=== PATIENT | female | born 1990 | race Caucasian/White ===

== ENCOUNTER 2022-03-16 09:01 | Inpatient (IN) | payer MEDICAID ==
[~2022-03-16] VITALS: Ht 154.9 cm; Wt 90.7 kg
[2022-03-16 09:12] VITALS: BP 165/104
[2022-03-16] MEDS ORDERED: LIDOCAINE MPF 1% 10 MG/ML VIAL INJ ONE (09:15)
[2022-03-16] MEDS ORDERED: VANCOMYCIN 1,000 MG in DEXTROSE 5% 250 ML IV ONE (09:25)
[2022-03-16] MEDS ORDERED: NACL 0.9% 1,000 ML IV ONE (09:45)
--- NOTE | 2022-03-16 09:51 | NUR ---
PT C/O ABSCESS TO LEFT UNDER ARM X5 DAYS CURRENTLY ON KELFEX WITHOUT RELIEF. NOTED PURULENT DRAINAGE AND REDNESS EXTENDING TO LEFT BREAST.
[2022-03-16] MEDS ORDERED: VANCOMYCIN 1,000 MG VIAL ONE (09:53)
[2022-03-16 10:18] LABS: BASOPHILS # (AUTO) 0.1 K/uL (0.00-0.22); EOSINOPHILS # (AUTO) 0.1 K/uL (0-0.4)
[2022-03-16 10:22] LABS: BASOPHILS % (AUTO) 0.7 % (0.0-2.0); EOSINOPHILS % (AUTO) 0.6 % (0.0-4.0); HEMATOCRIT 24.5 % (36-48); LYMPHOCYTES # (AUTO) 3.5 K/uL (2.5-16.5); LYMPHOCYTES % (AUTO) 22.3 % (20.5-51.1); MEAN CORPUSCULAR HEMOGLOBIN 14 pg (27-31); MEAN CORPUSCULAR HGB CONC 27 g/dL (33-37); MEAN CORPUSCULAR VOLUME 51.4 fL (80-94); MONOCYTES # (AUTO) 0.5 K/uL (0.8-1.0); MONOCYTES % (AUTO) 3.4 % (1.7-9.3); NEUTROPHILS # (AUTO) 11.4 K/uL (1.8-7.7); PLATELET COUNT (AUTO) 670 K/uL (140-450); RED BLOOD CELL COUNT(AUTO) 4.76 MIL/uL (4.20-5.40); RED CELL DISTRIBUTION WIDTH 20.8 % (11.6-13.7); WHITE BLOOD COUNT (AUTO) 15.5 K/uL (4.8-10.8)
[2022-03-16 10:36] LABS: ALBUMIN 2.3 g/dL (3.4-5.0); ANION GAP 12.4 (8-16); CREATININE 0.6 mg/dL (0.6-1.3); POTASSIUM 4.4 mmol/L (3.5-5.1); TOTAL BILIRUBIN 0.2 mg/dL (0.0-1.0)
[2022-03-16 10:38] LABS: HEMOGLOBIN 6.7 g/dL (12.0-16.0)
--- NOTE | 2022-03-16 10:47 | NUR ---
PT SWABBED FOR COVID SENT TO LAB
[2022-03-16 11:18] LABS: PROTHROMBIN TIME 9.4 secs (10.8-13.4)
[2022-03-16] MEDS ORDERED: DOCUSATE SODIUM 100 MG GELCAP PO PRN (13:10)
[2022-03-16] MEDS ORDERED: MAG SULF 2000 MG/WATER PREMIX 50 ML IV PRN (13:10)
[2022-03-16] MEDS: NACL 0.9% 1,000 ML IV SCH (13:10)
[2022-03-16] MEDS ORDERED: LORazepam 2 MG/ML VIAL IM/IVP PRN (13:10)
[2022-03-16] MEDS ORDERED: ZOLPIDEM 5 MG TAB PO PRN (13:10)
[2022-03-16] MEDS ORDERED: POTASSIUM CHLORIDE 10 MEQ TABER PO PRN (13:10)
[2022-03-16] MEDS ORDERED: ALBUTEROL HFA MDI 90 MCG/ACTUATION 8 GM INH PRN (13:15)
[2022-03-16 13:51] LABS: THYROID STIMULATING HORMONE 0.64 uIU/mL (0.34-3.74)
[2022-03-16] MEDS ORDERED: VANCOMYCIN PER PHARMACY MC PRN (16:15)
[2022-03-16 20:00] VITALS: BP 128/95
[2022-03-16] MEDS: ZINC SULF 220 MG CAP PO SCH (20:54)
[2022-03-16] MEDS ORDERED: PIPERACILLIN/TAZOBACTAM 3.375 GM VIAL IV ONE (23:40)
[2022-03-17] VITALS: BP 142/85
--- NOTE | 2022-03-17 00:10 | NUR ---
PT ON STABLE CONDITION, ADVERSE REACTION ONE HOUR AFTER BLOOD TRANSFUSION DONE. NO COMPLAINT OF PAIN OR DISCOMFORT.
--- NOTE | 2022-03-17 04:00 | NUR ---
PT ASLEEP, NO COMPLAINT OF PAIN OR DISCOMFORT. SAFETY MEASURES IN PLACE, CALL LIGHT WITHIN REACH.
[2022-03-17] MEDS ORDERED: PIPERACILLIN/TAZOBACTAM 3.375 GM VIAL IV ONE (05:14)
--- NOTE | 2022-03-17 05:30 | NUR ---
PT LEFT AXILLA SWOLLEN AND WITH DRAINAGE.
[2022-03-17] MEDS: NACL 0.9% 1,000 ML IV SCH ×2 (05:50→23:20)
[2022-03-17] MEDS: PIPERACILLIN/TAZOBACTAM 3.375 GM in DEXTROSE 5% 50 ML IV SCH ×6 (06:00→17:34)
[2022-03-17] MEDS: HYDROcodone/APAP 5/325 MG 1 TAB TAB PO PRN (06:21)
--- NOTE | 2022-03-17 06:21 | NUR ---
PT COMPLAINT OF HAVING PAIN ON LEFT AXILLA OF MODERATE PAIN 5/10. PRN PAIN MEDICATION NORCO ADMINISTERED ORDERED.
--- NOTE | 2022-03-17 06:30 | NUR ---
URINE SPECIMEN FOR ANALYSIS AND DRUG SCREEN TAKEN & UNDER LEFT AXILLA SECRETION FOR CULTURE ALSO OBTAIN FOR LABS.
[2022-03-17 06:46] LABS: BASOPHILS # (AUTO) 0.1 K/uL (0.00-0.22); BASOPHILS % (AUTO) 0.8 % (0.0-2.0); EOSINOPHILS # (AUTO) 0.2 K/uL (0-0.4); EOSINOPHILS % (AUTO) 1.3 % (0.0-4.0); HEMATOCRIT 26.5 % (36-48); HEMOGLOBIN 8.1 g/dL (12.0-16.0); LYMPHOCYTES # (AUTO) 2.9 K/uL (2.5-16.5); LYMPHOCYTES % (AUTO) 23.8 % (20.5-51.1); MEAN CORPUSCULAR HEMOGLOBIN 17 pg (27-31); MEAN CORPUSCULAR HGB CONC 31 g/dL (33-37); MEAN CORPUSCULAR VOLUME 54.8 fL (80-94); MONOCYTES # (AUTO) 0.5 K/uL (0.8-1.0); MONOCYTES % (AUTO) 4.4 % (1.7-9.3); NEUTROPHILS # (AUTO) 8.6 K/uL (1.8-7.7); NEUTROPHILS % (AUTO) 69.7 % (42.2-75.2); PLATELET COUNT (AUTO) 637 K/uL (140-450); RED BLOOD CELL COUNT(AUTO) 4.85 MIL/uL (4.20-5.40); RED CELL DISTRIBUTION WIDTH 22.8 % (11.6-13.7); WHITE BLOOD COUNT (AUTO) 12.3 K/uL (4.8-10.8)
[2022-03-17 07:00] LABS: MAGNESIUM 1.7 mg/dL (1.8-2.4); PHOSPHORUS 4.9 mg/dL (2.5-4.9)
--- NOTE | 2022-03-17 07:10 | NUR ---
RECEIVED REPORT FROM NETWORK PLANNER NURSE. PT IS A&OX4, ON ROOM AIR, AND NPO WITH MEDS. PT IS AMBULATORY, BUT NEEDS ASSISTANCE GETTING UP ON BED. SKIN IS INTACT, BUT WITH OPEN NODULES AND DRAINAGE ON LEFT AXILLA. IV SITE ON LEFT FA, WITH 20G AND INFUSING WITH NSS AT 60ML/HR. DISCUSSED PLAN OF CARE.
[2022-03-17 07:17] LABS: ANION GAP 14.8 (8-16); CARBON DIOXIDE 23.7 mmol/L (21-32); CREATININE 0.7 mg/dL (0.6-1.3); POTASSIUM 3.5 mmol/L (3.5-5.1)
[2022-03-17 07:19] LABS: CHOL/HDL RATIO 6.6 (1-4.5)
--- NOTE | 2022-03-17 07:20 | NUR ---
PATIENT ON STABLE CONDITION. ENDORSED TO DAY SHIFT NURSE FOR CONTINUITY OF CARE.
[2022-03-17 08:00] VITALS: BP 133/84
[2022-03-17 08:06] LABS: T4 (THYROXINE) 10.9 ug/dL (4.5-12.0)
--- NOTE | 2022-03-17 08:42 | NUR ---
PATIENT HAS BEEN SCREENED AND CATEGORIZED LOW NUTRITION RISK. PATIENT WILL BE SEEN WITHIN 7 DAYS OF ADMISSION. 03/17/22-03/23/[address]
--- NOTE | 2022-03-17 09:00 | NUR ---
WOUND CARE PROVIDED, DRESSING APPLIED AREA, CLEANED. NEW GOWN PROVIDED
[2022-03-17 09:14] LABS: BILIRUBIN,URINE NEGATIVE (NEGATIVE); BLOOD, URINE NEGATIVE (NEGATIVE); COLOR,URINE YELLOW (YELLOW); LEUKOCYTE ESTERASE ,URINE NEGATIVE (NEGATIVE); NITRITE, URINE NEGATIVE (NEGATIVE); UGLUCOSE NEGATIVE (NEGATIVE)
[2022-03-17] MEDS: ZINC SULF 220 MG CAP PO SCH ×2 (09:18→21:40)
[2022-03-17] MEDS: AZITHROMYCIN 250 MG TAB PO SCH (09:18)
[2022-03-17 09:19] LABS: APPEARANCE,URINE HAZY (CLEAR)
[2022-03-17] MEDS: ASCORBIC ACID 500 MG TAB PO SCH (09:19)
[2022-03-17 09:36] LABS: BARBITURATE, URINE NEGATIVE ng/ml (NEG <=200); BENZODIAZEPINE, URINE NEGATIVE ng/mL (NEG <=200); CANNABINOID, URINE NEGATIVE ng/mL (NEG <=50); COCAINE, URINE NEGATIVE ng/mL (NEG <=300); OPIATE, URINE NEGATIVE ng/mL (NEG <=2000); PHENCYCLIDINE SCREEN,URINE NEGATIVE ng/mL (NEG <=25)
[2022-03-17] MEDS: VITAMIN D 400 IU TAB PO SCH (10:50)
--- NOTE | 2022-03-17 11:00 | NUR ---
PT NOT ON ISOLATION, PT IS COVID NEGATIVE.
[2022-03-17 12:00] VITALS: BP 141/81
--- NOTE | 2022-03-17 12:00 | NUR ---
KRYSTLE MORRIS, UNABLE TO START ZOSYN ADMINISTRATION. SPOKE TO PHARMACY, NOTIFIED THEM OF TIME CHANGE DUE TO OTHER IV INFUSIONS. WILL ADMINISTER NEXT ZOSYN DOSE AT 1700 PER PHARMACY
[2022-03-17] MEDS: VANCOMYCIN HCL 1.25 GM in DEXTROSE 5% 250 ML IV SCH ×2 (12:56→21:41)
--- NOTE | 2022-03-17 14:49 | NUR ---
DRESSING CAME OFF, NEW DRESSING APPLIED AND SECURED. PT TOLERATED WELL
--- NOTE | 2022-03-17 16:32 | NUR ---
PT LYING ON HER BED, AWAKE. NOT IN DISTRESS AT THIS TIMKE. WILL CONTINUE TO MONITOR.
--- NOTE | 2022-03-17 17:00 | NUR ---
ENDORSED PT TO PAYAL SALAS FOR CONTINUITY OF CARE
--- NOTE | 2022-03-17 19:17 | NUR ---
ENDORSE PT TO PM SHIFT NURSE W/ STABLE CONDITION PIV LFA PATENT, IV INFUSING
--- NOTE | 2022-03-17 19:18 | NUR ---
RECEIVED BEDSIDE REPORT FROM DAY SHIFT NURSE FOR CONTINUITY OF PT CARE.
--- NOTE | 2022-03-17 21:45 | NUR ---
CURRENTLY PT IS ON NPO EXCEPT MEDS. PT IS ASKING WHEN SHE CAN HAVE A MEAL. CONTACT DR. PARKER, NO NEW DIET ORDER AT THIS TIME. SPOKE TO PT, PT UNDERSTOOD.
[2022-03-18] VITALS: BP 146/90
[2022-03-18] MEDS: PIPERACILLIN/TAZOBACTAM 3.375 GM in DEXTROSE 5% 50 ML IV SCH ×5 (00:58→23:23)
--- NOTE | 2022-03-18 01:15 | NUR ---
PT ASLEEP AND ON STABLE CONDITION. IVF IS RUNNING AT 60ML/HR, PATENTCY. NO SOB OR DISTRESS.
--- NOTE | 2022-03-18 03:00 | NUR ---
PT STABLE, IVF IS RUNNING AT 60 ML WITH WELL TOLERATED. PT STATED, SHE HAS MINIMAL AND TOLERABLE PAIN. IVF PATENT. NO SOB OR DISTRESS.
--- NOTE | 2022-03-18 05:30 | NUR ---
PT AMBULATE INDEPENDENTLY TO RESTROOM. WOUND WITH DRAINAGE NOTED. CLEANSED WOUND AND CHANGE DRESSING. PT TOLERATED WELL. IV MEDS ADMINISTERED ORDERED.
[2022-03-18 07:22] LABS: HEMOGLOBIN 7.8 g/dL (12.0-16.0); MEAN CORPUSCULAR HEMOGLOBIN 17 pg (27-31); MEAN CORPUSCULAR HGB CONC 30 g/dL (33-37); MEAN CORPUSCULAR VOLUME 55.2 fL (80-94); PLATELET COUNT (AUTO) 671 K/uL (140-450); RED BLOOD CELL COUNT(AUTO) 4.72 MIL/uL (4.20-5.40); RED CELL DISTRIBUTION WIDTH 23.9 % (11.6-13.7); WHITE BLOOD COUNT (AUTO) 12.7 K/uL (4.8-10.8)
[2022-03-18 07:40] LABS: ANION GAP 12.4 (8-16); CARBON DIOXIDE 25.4 mmol/L (21-32); CREATININE 0.6 mg/dL (0.6-1.3); POTASSIUM 3.8 mmol/L (3.5-5.1)
[2022-03-18 07:42] LABS: MAGNESIUM 2.2 mg/dL (1.8-2.4); PHOSPHORUS 4.5 mg/dL (2.5-4.9)
--- NOTE | 2022-03-18 07:57 | NUR ---
RECEIVED ENDORSEMENT FROM PM SHIFT NURSE THAT PATIENT STABLE W/ PIV @LFA 20G PATENT, IV INFUSING. LAB REPORT THAT PATIENT IS MRSA POSITIVE AT [facility]. WILL REPORT TO PCP/ID .
[2022-03-18 08:00] VITALS: BP 136/86
[2022-03-18 08:02] LABS: LYMPHOCYTES % (MANUAL) 23 % (20-46); MONOCYTES % (MANUAL) 2 % (5-12)
[2022-03-18 08:03] LABS: BASOPHILS % (MANUAL) 1 % (0-2); EOSINOPHILS % (MANUAL) 2 % (0-4); METAMYELOCYTES % 1 % (0-0)
[2022-03-18] MEDS: CHLORHEXADINE GLUC 2% CLOTH TP SCH (09:00)
[2022-03-18] MEDS: ASCORBIC ACID 500 MG TAB PO SCH (09:29)
[2022-03-18] MEDS: VITAMIN D 400 IU TAB PO SCH (09:30)
[2022-03-18] MEDS: MUPIROCIN CA NASAL 2% 1GM TUBE NS SCH (09:31)
[2022-03-18] MEDS: ZINC SULF 220 MG CAP PO SCH ×2 (09:31→21:24)
[2022-03-18] MEDS: AZITHROMYCIN 250 MG TAB PO SCH (09:31)
[2022-03-18] MEDS: ACETAMINOPHEN 325 MG TAB PO PRN (09:40)
[2022-03-18] MEDS: VANCOMYCIN HCL 1.25 GM in DEXTROSE 5% 250 ML IV SCH ×2 (10:00→21:36)
--- NOTE | 2022-03-18 11:00 | NUR ---
PATIENT'S PCP'S RESIDENT IS HERE TO CHECK PATIENT'S WOUND CONDITION. WILL F/U.
--- NOTE | 2022-03-18 12:42 | NUR ---
LEFT AXILLARY WOUND 2 WOUND SITES WITH WOUND EDGE MERGED, WOUND MEASUREMENT [id number], WOUND BED PALE PINK , MOIST, NO ODOR, SMALL AMOUNT CLEAR YELLOW PUS DRAINAGE DURING WOUND ASSESSMENT, BONITA WOUND SKIN SOFT NO INDURATION, REDNESS WITH PEELING SKIN, NOT WARM TO TOUCH, PAIN2/10. POC DISCUSSED WITH PT. WITH WOUND CARE INSTRUCTIONS TAUGHT, PT. VERBALIZES UNDERSTANDING. POC DISCUSSED WITH PRIMARY RN. RECOMMENDATIONS -CLEANSE LEFT AXILLARY WOUND WITH NS, PAT DRY, PACK WOUND LOOSELY WITH ADAPTIC /OIL EMULSION DRESSING WITH SILVASORB GEL AND COVER WITH DRY DRESSING QD AND PRN IF SOILING. -KEEP AREA DRY AND CLEAN, CONTINUE IV ANTIBIOTIC
[2022-03-18] MEDS: GAUZE TP SCH (13:07)
[2022-03-18 16:00] VITALS: BP 144/90
[2022-03-18] MEDS: NACL 0.9% 1,000 ML IV SCH (16:02)
[2022-03-18] MEDS: HYDROcodone/APAP 5/325 MG 1 TAB TAB PO PRN (18:04)
--- NOTE | 2022-03-18 19:24 | NUR ---
ENDORSE PT TO PM SHIFT NURSE W/ STABLE CONDITION, PIV L. FOREARM PATENT, IV INFUSING.
--- NOTE | 2022-03-18 19:25 | NUR ---
RECEIVED PATIENT FROM PAYAL SALAS. PATIENT IN ISOLATION ROOM FOR CONTACT PRECAUTION AND DROPLET. PATIENT IS IN BED ALERT AND ORIENT X 4. MOHAWK SPEAKING BUT CAN MAKE NEEDS KNOWN. DENIES ALLIE PAIN/DISCOMFORT AT THIS TIME. PATIENT IS ON ROOM AIR WITHOUT ANY ACUTE RESPIRATORY DISTRESS. BED AT THE LOWEST POSITION WITH HEAD OF BED SLIGHT ELEVATED AT 45 DEGREES TO WATCFH TV. CALL LIGHT WITH REACH AND ENCOURAGED TO USE IT FOR ANY AND ALL ASSISTAN
--- NOTE | 2022-03-18 19:30 | NUR ---
Patient's Plan of Care was discussed and reviewed with MARILIN: JOEY
--- NOTE | 2022-03-18 21:25 | NUR ---
PATIENT WAS GIVEN TUNA SANDWICH. WAS INFORMED SHE WILL RETURN TO NPO AFTER MIDNIGHT FOR TOMORROW. PATIENT REQUESTED FOR A SHOWER IN ANTICIPATION FOR HER MENSES TO COME BY TOMORROW. [email or web address]
--- NOTE | 2022-03-18 22:18 | NUR ---
MD HAS GIVEN PATIENT BATHROOM SHOWER PRIVILEGES AND RN WILL EXPLAIN IN SWAZI TO LET THE NURSES WRAP HER WOUND ARE TO PREVENT SATURATION OF WATER. [email or web address]
--- NOTE | 2022-03-18 23:25 | NUR ---
PATIENT IN BED EASY TO AROSE. RESTING WITHOUT TV ON. HOB ELEVATED TO 45 DEGREES FOR COMFORT. PATIENT CONTINUES TO DENY ANY PAIN/DISCOMFORT. NO NOTED RESPIRATORY DISTRESS. PATIENT AWARE NO MORE FOOD AFTER MIDNIGHT. SIDE RAILS UP X 2. CALL LIGHT WITHIN REACH. [id number]
--- NOTE | 2022-03-19 01:25 | NUR ---
PATIENT IN BED ASLEEP. NO NOTED RESPIRATORY DISTRESS. NO S/SX OF PAIN DISCOMFORT. SIDE RAILS UP X 2. [email or web address]
--- NOTE | 2022-03-19 03:25 | NUR ---
PATIENT IN BED ASLEEP. NO NOTED RESPIRATORY DISTRESS. NO S/SX OF PAIN DISCOMFORT. SIDE RAILS UP X 2. [email or web address]
[2022-03-19 04:00] VITALS: BP_SYST 148; BP_SYST 152; BP_DIAS 67; BP_DIAS 91
[2022-03-19] MEDS: PIPERACILLIN/TAZOBACTAM 3.375 GM in DEXTROSE 5% 50 ML IV SCH ×2 (05:12→12:21)
--- NOTE | 2022-03-19 06:59 | NUR ---
PATIENT IN BED AWAKE. NO COMPLAINTS OF PAIN/DISCOMFORT. NO NOTED RESPIRATORY DISTRESS. CELL ATTENDANT RAILS X 2 FOR ADJUSTMENT. CALL LIGHT WITHIN REACH. [email or web address]
[2022-03-19 07:05] LABS: ANION GAP 14.6 (8-16); BASOPHILS # (AUTO) 0.1 K/uL (0.00-0.22); BASOPHILS % (AUTO) 0.3 % (0.0-2.0); CARBON DIOXIDE 22.1 mmol/L (21-32); EOSINOPHILS % (AUTO) 0.1 % (0.0-4.0); HEMATOCRIT 26.1 % (36-48); HEMOGLOBIN 7.9 g/dL (12.0-16.0); LYMPHOCYTES # (AUTO) 3.4 K/uL (2.5-16.5); LYMPHOCYTES % (AUTO) 21.6 % (20.5-51.1); MEAN CORPUSCULAR HEMOGLOBIN 17 pg (27-31); MEAN CORPUSCULAR HGB CONC 30 g/dL (33-37); MEAN CORPUSCULAR VOLUME 55.1 fL (80-94); MONOCYTES # (AUTO) 0.8 K/uL (0.8-1.0); MONOCYTES % (AUTO) 5.3 % (1.7-9.3); NEUTROPHILS # (AUTO) 11.4 K/uL (1.8-7.7); NEUTROPHILS % (AUTO) 72.7 % (42.2-75.2); PLATELET COUNT (AUTO) 632 K/uL (140-450); POTASSIUM 3.7 mmol/L (3.5-5.1); RED BLOOD CELL COUNT(AUTO) 4.74 MIL/uL (4.20-5.40); RED CELL DISTRIBUTION WIDTH 23.9 % (11.6-13.7); WHITE BLOOD COUNT (AUTO) 15.7 K/uL (4.8-10.8)
[2022-03-19 07:10] LABS: MAGNESIUM 2.2 mg/dL (1.8-2.4)
--- NOTE | 2022-03-19 07:10 | NUR ---
PATIENT WAS ENDORSE TO PAYAL SALAS FOR CONTINUITY OF CARE. [email or web address]
--- NOTE | 2022-03-19 07:43 | NUR ---
RECEIVE ENDORSEMENT FROM PM SHIFT NURSE W/ PT IN STABLE CONDITION, PIV L.FOREARM 20G PATENT, IV INFUSING, NPO EXCEPT MEDS. FROM MIDDLE NIGHT. WILL CONTINUE TO MONITOR
[2022-03-19] MEDS: NACL 0.9% 1,000 ML IV SCH ×2 (07:51→20:26)
[2022-03-19] MEDS: CHLORHEXADINE GLUC 2% CLOTH TP SCH (09:00)
[2022-03-19] MEDS: ASCORBIC ACID 500 MG TAB PO SCH (09:36)
[2022-03-19] MEDS: ZINC SULF 220 MG CAP PO SCH ×2 (09:37→21:54)
[2022-03-19] MEDS: VITAMIN D 400 IU TAB PO SCH (09:37)
[2022-03-19] MEDS: AZITHROMYCIN 250 MG TAB PO SCH (09:37)
[2022-03-19] MEDS: MUPIROCIN CA NASAL 2% 1GM TUBE NS SCH (09:38)
[2022-03-19] MEDS: VANCOMYCIN HCL 1.25 GM in DEXTROSE 5% 250 ML IV SCH ×2 (10:00→10:09)
--- NOTE | 2022-03-19 10:55 | NUR ---
RECEIVED LAB REPORT THAT PATIENT'S VANCOMYCIN TROUGH 36.3. HOLD VANCOMYCIN
[2022-03-19 12:00] VITALS: BP 144/82
[2022-03-19] MEDS: GAUZE TP SCH (13:02)
--- NOTE | 2022-03-19 14:00 | NUR ---
RECEIVE CALL FORM JANETT AGRAWAL, REQUEST CLARIFY PATIENT'S DOCTOR BECAUSE THEY RECEIVE BOTH DR. GARCIA AND ADRIANE CHEUNG'S PRESCRIBE FOR [facility].
--- NOTE | 2022-03-19 19:27 | NUR ---
RECEIVED PT FROM AM NURSE FOR CONTINUITY OF CARE.PT IS STABLE
--- NOTE | 2022-03-19 19:37 | NUR ---
ENDORSE PT TO PM SHIFT NURSE W/ STABLE CONDITION, PIV L.FOREARM 20G PATENT, IV INFUSING
[2022-03-19 20:00] VITALS: BP 140/87
--- NOTE | 2022-03-19 21:30 | NUR ---
MEDICATIONS GIVEN,TOLERATED WELL.NO SOB ,COUGH NOTED .
[2022-03-19] MEDS: LINEZOLID 600 MG TAB PO SCH (21:57)
--- NOTE | 2022-03-20 | NUR ---
PATIENT SLEEPING COMFORTABLY ,BREATHING EVEN AND UNLABORED,NO DISTRESS NOTED
[2022-03-20] MEDS: NACL 0.9% 1,000 ML IV SCH ×3 (02:26→16:30)
--- NOTE | 2022-03-20 03:00 | NUR ---
DRESSING CHANGED ON LEFT UPPER CHEST WOUND DONE,TOLERATED WELL ,BREATHING EVEN AND UNLABORED, NO COUGH ,NO SOB NOTED
[2022-03-20 04:00] VITALS: BP 141/76
--- NOTE | 2022-03-20 06:00 | NUR ---
PATIENT ASLEEP, BREATHING EVEN AND UNLABORED,NO DISTRESS NOTED.
[2022-03-20 07:10] LABS: BASOPHILS # (AUTO) 0.1 K/uL (0.00-0.22); BASOPHILS % (AUTO) 0.4 % (0.0-2.0); EOSINOPHILS % (AUTO) 0.2 % (0.0-4.0); HEMATOCRIT 24.7 % (36-48); HEMOGLOBIN 7.5 g/dL (12.0-16.0); LYMPHOCYTES # (AUTO) 3.9 K/uL (2.5-16.5); LYMPHOCYTES % (AUTO) 26.1 % (20.5-51.1); MEAN CORPUSCULAR HEMOGLOBIN 17 pg (27-31); MEAN CORPUSCULAR HGB CONC 30 g/dL (33-37); MEAN CORPUSCULAR VOLUME 55.3 fL (80-94); MONOCYTES # (AUTO) 0.7 K/uL (0.8-1.0); NEUTROPHILS # (AUTO) 10.2 K/uL (1.8-7.7); NEUTROPHILS % (AUTO) 68.3 % (42.2-75.2); PLATELET COUNT (AUTO) 628 K/uL (140-450); RED BLOOD CELL COUNT(AUTO) 4.47 MIL/uL (4.20-5.40); RED CELL DISTRIBUTION WIDTH 23.9 % (11.6-13.7); WHITE BLOOD COUNT (AUTO) 14.9 K/uL (4.8-10.8)
[2022-03-20 07:19] LABS: MAGNESIUM 2.3 mg/dL (1.8-2.4); PHOSPHORUS 5.4 mg/dL (2.5-4.9)
[2022-03-20 07:31] LABS: ANION GAP 14.2 (8-16); CARBON DIOXIDE 21.3 mmol/L (21-32); CREATININE 2.6 mg/dL (0.6-1.3); POTASSIUM 3.5 mmol/L (3.5-5.1)
--- NOTE | 2022-03-20 07:41 | NUR ---
ENDORSED PT TO AM NURSE FOR CONTINUITY OF CARE.PT IS STSBLE
[2022-03-20 08:00] VITALS: BP 144/83
[2022-03-20] MEDS: CHLORHEXADINE GLUC 2% CLOTH TP SCH ×2 (09:00→13:00)
[2022-03-20] MEDS: VITAMIN D 400 IU TAB PO SCH (09:24)
[2022-03-20] MEDS: LINEZOLID 600 MG TAB PO SCH ×2 (09:25→22:07)
[2022-03-20] MEDS: ASCORBIC ACID 500 MG TAB PO SCH (09:25)
[2022-03-20] MEDS: MUPIROCIN CA NASAL 2% 1GM TUBE NS SCH (09:26)
[2022-03-20] MEDS: ZINC SULF 220 MG CAP PO SCH ×2 (09:26→22:07)
[2022-03-20] MEDS: AZITHROMYCIN 250 MG TAB PO SCH (09:27)
--- NOTE | 2022-03-20 11:12 | NUR ---
STARTED IV ON THE LFA WITH 22 G, C/O OLD IV LEAKING [id number]
--- NOTE | 2022-03-20 12:25 | NUR ---
DC PLANNING: THE PATIENT PRESENTED FROM HOME WITH MULTIPLE OPEN NODULES IN HER LEFT AXILLA, HAS BEEN TREATED OP WITH KEFLEX WITHOUT IMPROVEMENT OR RELIEF. PATIENT ALSO NOTED TO BE TACHYCARDIC AND ANEMIC WITH HGB OF 6.7, COVID RAPID POSITIVE BUT PCR NEGATIVE. WBC'S ELEVATED, 1 UNITS PRBC'S GIVEN. AXILLA CULTURE POSITIVE FOR MRSA, BLOOD CULTURES IN PROCESS. MARTY SPOKE WITH THE PATIENT AT BEDSIDE, SHE LIVES IN A GROUND FLOOR APARTMENT WITH HER . SHE IS INDEPENDENT IN ALL ACTIVITIES AND GOES TO [facility] IN [place] FOR HER MD FOLLOW UP. PATIENT TO DC HOME WHEN CLINICALLY STABLE, MARTY WILL FOLLOW. Addendum: 03/22/22 at 1103 by Nora Bonilla CM DC PLANNING: MARTY MET WITH THE PATIENT AT BEDSIDE WITH LOTUS POLLARD TO ACT NETWORK SYSTEMS OPERATOR. EXPLAINED THAT THE PATIENT WILL DC HOME TODAY AND ASKED ABOUT REFERRING HER TO THE [facility]OUND [facility]. ASKED IF HER COULD DO HER WOUND CARE, PER PATIENT HE WORKS, SO NO. MARTY EXPLAINED THAT THE WOUND CLINIC IS [facility] PAY OF $90/DAY AND ASKED IF MARTY COULD REFER HER, THE PATIENT STATES YES AND THAT SHE IS WILLING TO PAY FOR VISITS. SHE WILL ALSO F/U WITH HER MD AT [facility]. ORDER AND FACE SHEET FAXED TO [facility], MARTY ALSO SPOKE WITH THEM TO LET THEM KNOW A REFERRAL WOULD BE SENT AND CONFIRMED THAT THEY DO NOT ACCEPT PRESUMPTIVE M/AMY COVERAGE FOR SERVICES. MARTY CHECKED WITH HANNA, PATIENT IN PROCESS, HOUSEHOLD INCOME AT LIMIT BUT MINOR CHILD IN HOME MEANS PATIENT WILL LIKELY GET M/AMY WITH SOC. MARTY WILL FOLLOW.
[2022-03-20] MEDS: GAUZE TP SCH (13:00)
--- NOTE | 2022-03-20 16:17 | NUR ---
DC PLANNING PATIENT IS A 32-YEAR-OLD FEMALE ADMITTED IN THE [facility]/ED ON 03/16/2022 DUE TO COMPLAINTS OF PAINFUL SWOLLEN OPEN NODULES IN HER LEFT AXILLA.(PATIENT IS GABONESE SPEAKING ONLY). LOTUS MET WITH PATIENT AT BEDSIDE TO DISCUSS AND GATHER HER COLLATERAL INFORMATION. PATIENT REPORTED LIVING AT HOME WITH HER SIGNIFICANT OTHER BEAU CABRERA AND 6-YEAR-OLD DAUGHTER AT HOME IN [place]. PER PATIENT HER BOYFRIEND IS HER EMERGENCY AND MEDICAL DECISION MAKER. PATIENT REPORTED NOT HAVING ADVANCE DIRECTIVES AND WAS INTERESTED ON GETTING THE INF.FORMS PROVIDED BY LOTUS. PATIENT REPORTED NOT HAVING A PCP DUE TO NOT HAVING INSURANCE BUT REPORTED GOING TO A DOCTOR IN [facility] IN THE [facility] IN [place] WHEN SHE NEEDS TO SEE A DOCTOR OR LAST VISIT IN CLINIC WAS ABOUT A MONTH AGO. PATIENT REPORTED THAT SHE WILL FOLLOW US WITH AN APPOINTMENT AFTER HER DC FROM [facility] WHEN SHE IS DISCHARGE. SW ALSO PROVIDED PATIENT WITH RESOURCES TO EMERGENCY BASICS, FOOD SULLIVAN CLOTHING AND PROVIDED A LIST OF ADDITIONAL [place] CLINICS TO GET MEDICAL CARE IN HER AREA AT [place]. PATIENT ALSO REPORTED NOT HAVING ANY ISSUES GETTING OR TAKING HER MEDICATIONS FROM THE [facility] IN [place]. NEAR HER HOME. PATIENT STATED NOT HAVING OR NEEDING DME AT HOME AND BEEN ACTIVE AND INDEPENDENT TO AMBULATE. PATIENT REPORTED TO LOTUS THAT SHE WILL BE ASSISTED BY HER SIGNIFICANT OTHER AND FATHER OF HER CHILD BEAU CABRERA WITH TRANSPORTATION BACK HOME WHEN SHE IS READY TO DC FROM [facility].SW WILL FOLLOW UP NEEDED. Addendum: 03/20/22 at 1818 by Elizabet LOERA Amended: Links added.
--- NOTE | 2022-03-20 16:20 | NUR ---
PROVIDED FOOD DRUG INTERACTION NUTRITION EDUCATION HANDOUT TO PATIENT. 03/20/[address]
--- NOTE | 2022-03-20 19:23 | NUR ---
RECEIVED PT FROM AM NURSE FOR CONTINUITY OF CARE.PT IS STABLE
[2022-03-20 20:00] VITALS: BP 142/80
[2022-03-20] MEDS: ACETAMINOPHEN 325 MG TAB PO PRN (22:08)
--- NOTE | 2022-03-21 | NUR ---
PT ASLEEP ,BREATHING EVEN AND UNLABORED,NO DISTRESS NOTED
--- NOTE | 2022-03-21 03:00 | NUR ---
PATIENT IS AWAKE,NO COUGH OR SOB NOTED
[2022-03-21 04:00] VITALS: BP 138/76
--- NOTE | 2022-03-21 06:00 | NUR ---
SLEEPING AT THIS TIME,RESPIRATION EVEVN AND UNLABORED,NO DISTRESS NOTED
[2022-03-21] MEDS: ONDANSETRON 4 MG/2 ML VIAL IM/IVP PRN ×2 (06:32→11:16)
[2022-03-21 07:07] LABS: ANION GAP 17.9 (8-16); CARBON DIOXIDE 17.3 mmol/L (21-32); CREATININE 2.7 mg/dL (0.6-1.3); POTASSIUM 3.2 mmol/L (3.5-5.1)
[2022-03-21 07:13] LABS: HEMATOCRIT 24.6 % (36-48); HEMOGLOBIN 7.4 g/dL (12.0-16.0); MEAN CORPUSCULAR HEMOGLOBIN 17 pg (27-31); MEAN CORPUSCULAR HGB CONC 30 g/dL (33-37); PLATELET COUNT (AUTO) 575 K/uL (140-450); RED BLOOD CELL COUNT(AUTO) 4.38 MIL/uL (4.20-5.40); RED CELL DISTRIBUTION WIDTH 26.1 % (11.6-13.7); WHITE BLOOD COUNT (AUTO) 14.5 K/uL (4.8-10.8)
[2022-03-21 07:25] LABS: PHOSPHORUS 5.4 mg/dL (2.5-4.9)
--- NOTE | 2022-03-21 08:03 | NUR ---
RECEIVED REPORT FROM NIGHT NURSE PT RESTING COMFORTABLY , NO SOB [id number]
[2022-03-21 08:44] LABS: EOSINOPHILS % (MANUAL) 3 % (0-4); LYMPHOCYTES % (MANUAL) 18 % (20-46); METAMYELOCYTES % 2 % (0-0); MONOCYTES % (MANUAL) 6 % (5-12); MYELOCYTES % 2 % (0-0)
[2022-03-21] MEDS: VITAMIN D 400 IU TAB PO SCH (09:55)
[2022-03-21] MEDS: MUPIROCIN CA NASAL 2% 1GM TUBE NS SCH (09:55)
[2022-03-21] MEDS: ASCORBIC ACID 500 MG TAB PO SCH (09:56)
[2022-03-21] MEDS: LINEZOLID 600 MG TAB PO SCH ×2 (09:56→21:15)
[2022-03-21] MEDS: ZINC SULF 220 MG CAP PO SCH ×2 (09:57→21:14)
--- NOTE | 2022-03-21 12:00 | NUR ---
NAUSEA MED IS EFFECTIVE.[id number]
[2022-03-21] MEDS: NACL 0.9% 1,000 ML IV SCH ×2 (12:26→22:26)
[2022-03-21] MEDS: GAUZE TP SCH (13:38)
[2022-03-21] MEDS ORDERED: ACET-8386 PO (14:33)
[2022-03-21 16:54] VITALS: BP 154/76
--- NOTE | 2022-03-21 19:20 | NUR ---
RECEIVED BEDSIDE REPORT FROM DAY SHIFT NURSE FOR CONTINUITY OF PATIENT CARE.
--- NOTE | 2022-03-21 21:10 | NUR ---
PATIENT IS STABLE, NO COMPLAINT OF NAUSEA. IV HYDRATION IS RUNNING ORDER. SATETY MEASURES IN PLACE, CALL LIGHT ON EASY REACH.
--- NOTE | 2022-03-21 23:26 | NUR ---
PATIENT'S POTASSIUM LEVEL REPORTED LOW ON 03/21/22, POTASSIUM ORDERED ADMINISTERED (GIVEN WHEN POTASSIUM RESULT IS <3.5. PATIENT TOLERATED WELL.
--- NOTE | 2022-03-22 02:00 | NUR ---
PATIENT IS ASLEEP, DOES NOT COMPLAINT OF PAIN. CONTINUE MONITORING. SAFETY MEASURES IN PLACE, CALL LIGHT WITHIN REACH. IV INTACT AND PATENT. NO S/S OF INFECTION.
[2022-03-22 04:00] VITALS: BP 153/84
--- NOTE | 2022-03-22 07:16 | NUR ---
ENDORSE PATIENT TO DAY SHIFT NURSE, MARK, FOR CONTINUITY OF CARE.
[2022-03-22 08:00] VITALS: BP 141/82
[2022-03-22] MEDS: NACL 0.9% 1,000 ML IV SCH (08:26)
[2022-03-22] MEDS: ASCORBIC ACID 500 MG TAB PO SCH (09:06)
[2022-03-22] MEDS: LINEZOLID 600 MG TAB PO SCH (09:06)
[2022-03-22] MEDS: MUPIROCIN CA NASAL 2% 1GM TUBE NS SCH (09:06)
[2022-03-22] MEDS: VITAMIN D 400 IU TAB PO SCH (09:06)
[2022-03-22] MEDS: CHLORHEXADINE GLUC 2% CLOTH TP SCH (09:07)
[2022-03-22 09:13] LABS: BASOPHILS # (AUTO) 0.1 K/uL (0.00-0.22); EOSINOPHILS # (AUTO) 0.2 K/uL (0-0.4); NEUTROPHILS # (AUTO) 10.8 K/uL (1.8-7.7); WHITE BLOOD COUNT (AUTO) 14.7 K/uL (4.8-10.8)
[2022-03-22] MEDS ORDERED: LINE600T4 PO (09:16)
[2022-03-22 09:18] LABS: CARBON DIOXIDE 18.1 mmol/L (21-32); CREATININE 2.5 mg/dL (0.6-1.3); POTASSIUM 4.1 mmol/L (3.5-5.1)
[2022-03-22 09:19] LABS: BASOPHILS % (AUTO) 0.5 % (0.0-2.0); EOSINOPHILS % (AUTO) 1.5 % (0.0-4.0); HEMATOCRIT 26.7 % (36-48); HEMOGLOBIN 7.8 g/dL (12.0-16.0); LYMPHOCYTES # (AUTO) 3.1 K/uL (2.5-16.5); LYMPHOCYTES % (AUTO) 21.3 % (20.5-51.1); MEAN CORPUSCULAR HEMOGLOBIN 17 pg (27-31); MEAN CORPUSCULAR HGB CONC 29 g/dL (33-37); MEAN CORPUSCULAR VOLUME 56.2 fL (80-94); MONOCYTES # (AUTO) 0.5 K/uL (0.8-1.0); MONOCYTES % (AUTO) 3.1 % (1.7-9.3); NEUTROPHILS % (AUTO) 73.6 % (42.2-75.2); PLATELET COUNT (AUTO) 586 K/uL (140-450); RED BLOOD CELL COUNT(AUTO) 4.75 MIL/uL (4.20-5.40); RED CELL DISTRIBUTION WIDTH 26.2 % (11.6-13.7)
[2022-03-22 09:21] LABS: PHOSPHORUS 4.8 mg/dL (2.5-4.9)
[2022-03-22 10:54] VITALS: BP 141/84
[2022-03-22] MEDS: GAUZE TP SCH (13:15)
--- NOTE | 2022-03-22 15:37 | NUR ---
pt discharged home, DC instruction given, IV LINE OUT, PT WALKED OUT WITH THE NURSE TO HER CAR WITH OUT ANY DISCOMFORT.[email or web address]
== END 2022-03-22 15:36 | disposition home or self-care (01) | DRG 720 ==
LOC: MED 09:01 → MMU 10:56 → MTU 12:01
PROC: 30233N1 Transfusion of Nonautologous Red Blood Cells into Peripheral Vein, Percutaneous Approach (ICD-10-PCS; principal; 2022-03-16)
DX: A41.02 Sepsis due to Methicillin resistant Staphylococcus aureus (principal); N17.0 Acute kidney failure with tubular necrosis; E87.2 Acidosis; E44.0 Moderate protein-calorie malnutrition; D68.59 Other primary thrombophilia; D63.8 Anemia in other chronic diseases classified elsewhere; E86.0 Dehydration; L03.90 Cellulitis, unspecified; D75.839 Thrombocytosis, unspecified; L73.2 Hidradenitis suppurativa; E83.42 Hypomagnesemia; E78.1 Pure hyperglyceridemia; I10 Essential (primary) hypertension; E03.9 Hypothyroidism, unspecified; Z20.822 Contact with and (suspected) exposure to COVID-19; E66.9 Obesity, unspecified; Z68.37 Body mass index [BMI] 37.0-37.9, adult
CPT/HCPCS: 36415; 36430; 71045; 76770; 80048; 80053; 80202; 80305; 81003; 82150; 83036; 83605; 83615; 83690; 83735; 83880; 84100; 84134; 84300; 84436; 84443; 85025; 85379; 85610; 85651; 85730; 86140; 86886; 86900; 86901; 86920; 87040; 87070; 87081; 87186; 87635-QW; 93971; 96361; 96365; 99291; J0696; J2405; J2543; J3370; J3475; J3535; J7060; P9016; Q0092